=== PATIENT | male | born 2000 | race American Indian/Alaskan Native ===

== ENCOUNTER 2022-07-23 09:31 | Emergency (ER) | payer MEDICAID, OTHER ==
[2022-07-23 10:20] VITALS: BP 155/91
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
[2022-07-23] MEDS ORDERED: KETOROLAC 10 MG TAB PO ONE (13:05)
[2022-07-23] MEDS ORDERED: CYCLOBENZAPRINE 10 MG TAB PO ONE (13:05)
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
== END 2022-07-23 17:55 | disposition home or self-care (01) ==
LOC: ED 09:31
DX: M54.2 Cervicalgia (principal); Z88.2 Allergy status to sulfonamides; Z88.6 Allergy status to analgesic agent; Z79.899 Other long term (current) drug therapy; V87.7XXA Person injured in collision between other specified motor vehicles (traffic), initial encounter; Y93.89 Activity, other specified; Y92.488 Other paved roadways as the place of occurrence of the external cause; Y99.8 Other external cause status
CPT/HCPCS: 72040; 99283